=== PATIENT | female | born 1985 | race African-American/Black ===

== ENCOUNTER 2022-07-29 19:40 | Emergency (ER) | payer OTHER ==
[~2022-07-29] VITALS: Ht 170.2 cm; Wt 104.3 kg
--- NOTE | 2022-07-29 20:19 | NUR ---
Pt seen by Dr. Judd for MSE.
[2022-07-29] MEDS ORDERED: LIDOCAINE HCL 2% 20 ML VIAL IJ ONE (20:30)
[2022-07-29] MEDS ORDERED: methylPREDNISolone ACETATE 40 MG VIAL IM ONE (20:30)
[2022-07-29] MEDS ORDERED: LIDOCAINE HCL 2% 20 ML VIAL ONE (20:38)
[2022-07-29] MEDS ORDERED: HYDR-3980 PO (20:42)
[2022-07-29] MEDS ORDERED: methylPREDNISolone SOD SUCC 40 MG/ML VIAL ONE (20:55)
--- NOTE | 2022-07-29 21:47 | NUR ---
Patient discharged to home in stable condition. Written and verbal after care instructions given. Patient verbalizes understanding of instructions. Stressed follow up or return to ER for worsening s/s.
[2022-07-29 21:51] VITALS: BP 131/60
== END 2022-07-29 21:46 | disposition home or self-care (01) ==
LOC: ER 19:40
DX: M06.9 Rheumatoid arthritis, unspecified (principal); Z72.0 Tobacco use
CPT/HCPCS: 20610; 99283; 83986; 84155; 36415; 87070; 87075; 87205; J3490; J2920; A4663